=== PATIENT | male | born 1990 | race Caucasian/White ===

== ENCOUNTER 2016-10-29 20:28 | Emergency (ER) | payer OTHER ==
[~2016-10-29] VITALS: Ht 185.4 cm; Wt 104.3 kg
[2016-10-29] MEDS ORDERED: FLUO1OPD (20:36)
[2016-10-29 22:06] VITALS: BP 136/72
--- NOTE | 2016-10-30 02:32 | REP ---
Clinical: Shortness of breath . Comparison: 11/27/2015 . Technique: PA and lateral. Findings: The mediastinum and cardiac silhouette are normal. The lung german are clear and without acute consolidation, effusion, or pneumothorax. The skeletal structures are intact and normal. Impression: 1. No acute cardiopulmonary process. Signed by Fred Ramos MD 10/30/2016 02:24 A
== END 2016-10-29 22:18 | disposition home or self-care (01) ==
LOC: M ED 21:09
DX: J06.9 Acute upper respiratory infection, unspecified (principal); Z88.0 Allergy status to penicillin; Z79.899 Other long term (current) drug therapy

== ENCOUNTER 2017-07-15 17:13 | Emergency (ER) | payer OTHER ==
[2017-07-15] MEDS: PERCOCET 5MG/325MG TAB PO (19:23)
== END 2017-07-15 19:27 | disposition home or self-care (01) ==
LOC: M ED 17:13
DX: S93.402A Sprain of unspecified ligament of left ankle, initial encounter (principal); X50.9XXA Other and unspecified overexertion or strenuous movements or postures, initial encounter; Y92.89 Other specified places as the place of occurrence of the external cause; Y93.23 Activity, snow (alpine) (downhill) skiing, snowboarding, sledding, tobogganing and snow tubing; Z79.899 Other long term (current) drug therapy; Z88.0 Allergy status to penicillin; Z87.891 Personal history of nicotine dependence
CPT/HCPCS: 73610

== ENCOUNTER 2017-08-29 18:50 | Emergency (ER) | payer OTHER ==
[2017-08-29] MEDS: OXYCODONE/APAP 5MG/325MG(BULK FOR ED) 1 TABLET PO (20:11)
== END 2017-08-29 20:20 | disposition home or self-care (01) ==
LOC: M ED 18:50
DX: M66.821 Spontaneous rupture of other tendons, right upper arm (principal); X50.0XXA Overexertion from strenuous movement or load, initial encounter; Y92.89 Other specified places as the place of occurrence of the external cause; Y93.B9 Activity, other involving muscle strengthening exercises; Z88.0 Allergy status to penicillin
CPT/HCPCS: 99283

== ENCOUNTER 2018-09-18 15:56 | Emergency (ER) | payer OTHER ==
[~2018-09-18] VITALS: Ht 185.4 cm; Wt 109.1 kg
[~2018-09-18 15:56] MED LIST: FLUO1OPD; IBUP-1022 PO; PERC5TAB12 PO
[2018-09-18 16:52] LABS: BASO # 0.1 10^3/uL (0.0-0.2); BASO % 0.8 % (0.0-1.0); EOS # 0.3 10^3/uL (0.0-0.50); EOS % 4.2 % (0.0-3.0); HEMATOCRIT 49.9 % (42.0-52.0); HEMOGLOBIN 16.4 g/dl (13.5-17.5); LYMPH # 1.5 10^3/uL (1.5-6.5); LYMPH % 18.7 % (24.0-44.0); MEAN CORPUSCULAR HEMOGLOBIN 28.8 pg (27.0-33.0); MEAN CORPUSCULAR HGB CONC 32.9 g/dl (32.0-36.5); MEAN CORPUSCULAR VOLUME 87.5 fl (80.0-96.0); MONO # 1.1 10^3/uL (0.0-0.8); MONO % 13.5 % (0.0-5.0); NEUTROPHILS # 4.9 10^3/uL (1.8-7.7); NEUTROPHILS % 62.5 % (36.0-66.0); PLATELET COUNT, AUTOMATED 382 10^3/uL (150-450); WHITE BLOOD COUNT 7.9 10^3/uL (4.0-10.0)
--- NOTE | 2018-09-18 17:05 | REP ---
Chest two views HISTORY: Chest pain Comparison: 10/29/2016 The lungs are clear. The heart is normal in size. The pulmonary vasculature is normal in appearance. The bony structure is intact. IMPRESSION: No acute disease. Electronically Signed by Renny Sotelo MD 09/18/2018 04:56 P
[2018-09-18 17:20] LABS: BLOOD UREA NITROGEN 13 MG/DL (7-18); CALCIUM LEVEL 9.3 MG/DL (8.5-10.1); CARBON DIOXIDE LEVEL 29 MEQ/L (21-32); CHLORIDE LEVEL 105 MEQ/L (98-107); CPK CREATINE PHOSPHOKINASE 654 U/L (39-308); GLOMERULAR FILTRATION RATE > 60.0 (>60); GLUCOSE, FASTING 65 MG/DL (70-100); MB/CK RELATIVE INDEX 0.44 (< OR =4); POTASSIUM SERUM 4.4 MEQ/L (3.5-5.1); SODIUM LEVEL 140 MEQ/L (136-145); TROPONIN I < 0.02 NG/ML (< 0.10)
[2018-09-18 19:31] VITALS: BP 108/52
--- NOTE | 2018-09-19 06:27 | ECGEPIP ---
Stationary ECG Study [facility] - ED Test Date: 2018-09-18 Pat Name: OZZY ERVIN Department: Room: - Gender: M Senior Research Project Manager: [email or web address] : 1990 Requested By: Kelly Lund Order Number: [id number] Reading MD: Leo Marin Measurements Intervals [place] Rate: 80 P: 50 OR: 137 QRS: -24 QRSD: 96 T: 42 QT: 354 QTc: 409 Interpretive Statements SINUS RHYTHM WITH MARKED SINUS ARRHYTHMIA POSSIBLE LEFT ATRIAL ENLARGEMENT BORDERLINE LEFT AXIS DEVIATION SIMILAR TO 11/26/15 Electronically Signed On 09-19-2018 6:26:46 EDT by Leo Marin
== END 2018-09-18 19:41 | disposition home or self-care (01) ==
LOC: M ED 15:56
DX: I47.1 Supraventricular tachycardia (principal); Z77.098 Contact with and (suspected) exposure to other hazardous, chiefly nonmedicinal, chemicals; Z88.0 Allergy status to penicillin

== ENCOUNTER 2019-01-10 16:53 | Emergency (ER) | payer OTHER ==
[~2019-01-10] VITALS: Ht 185.4 cm; Wt 102.3 kg
[2019-01-10 16:53] VITALS: BP 127/73
--- NOTE | 2019-01-10 18:10 | REPVR ---
EXAM: US Duplex Left Lower Extremity Veins, Limited EXAM DATE/TIME: 01/10/2019 6:00 PM CLINICAL HISTORY: 28 years old, male; Pain; Leg, lower; Left; Additional info: Swelling TECHNIQUE: Imaging protocol: Real-time Duplex ultrasound of the Left Lower Extremity with 2-D carranza scale, color Doppler flow and spectral waveform analysis. Limited exam focused on the left lower extremity veins. COMPARISON: No relevant prior studies available. FINDINGS: Left deep veins: Unremarkable. The common femoral, femoral, proximal profunda femoral and popliteal veins are patent without thrombus. Normal Doppler waveforms. Normal compressibility and/or augmentation response. Left superficial veins: Unremarkable. Saphenofemoral junction is patent without thrombus. Soft tissues: Unremarkable. IMPRESSION: No acute findings. No evidence of deep vein thrombosis. Electronically signed by: Zak Bianchi On 01/10/2019 18:09:42 PM
[2019-01-10] MEDS ORDERED: NAPR-837 PO (18:36)
== END 2019-01-10 18:44 | disposition home or self-care (01) ==
LOC: M ED 16:53
DX: M65.262 Calcific tendinitis, left lower leg (principal); Z88.0 Allergy status to penicillin
CPT/HCPCS: 93971; 99283; G0463

== ENCOUNTER → 2019-05-01 | Outpatient (CLI) | payer OTHER ==
[~2019-05-01] MED LIST changes: +NAPR-837 PO
--- NOTE | 2019-05-01 10:23 | REP ---
Two-view chest: 05/01/2019. Indication: Atrial fibrillation. Comparison: 09/18/2018. Findings: The lungs are clear. There is no pleural effusion or pneumothorax. Cardiomediastinal silhouette is unremarkable. Impression: Clear lungs. Electronically Signed by Michael Rojas DO 05/01/2019 10:15 A
[2019-05-01 10:31] LABS: APPEARANCE, URINE CLEAR (CLEAR); BACTERIA, URINE AUTO NEGATIVE (NEGATIVE); BILIRUBIN, URINE AUTO NEGATIVE (NEGATIVE); BLOOD, URINE BLOOD NEGATIVE (NEGATIVE); COLOR, URINE YELLOW (YELLOW); GLUCOSE, URINE (UA) AUTO NEGATIVE (NEGATIVE); KETONE, URINE AUTO NEGATIVE (NEGATIVE); LEUKOCYTE ESTERASE, URINE AUTO NEGATIVE (NEGATIVE); MUCUS, URINE SMALL (NEGATIVE); NITRITE, URINE AUTO NEGATIVE (NEGATIVE); PROTEIN, URINE AUTO NEGATIVE (NEGATIVE); RBC, URINE AUTO 2 /HPF (0-3); SPECIFIC GRAVITY URINE AUTO 1.016 (1.002-1.035); SQUAMOUS EPITHELIAL CELL UR AU 0 /HPF (0-6); UROBILINOGEN, URINE AUTO 0.2 mg/dL (0.0-2.0); WBC, URINE AUTO 0 /HPF (0-3)
[2019-05-01 10:33] LABS: HEMATOCRIT 47.6 % (42.0-52.0); HEMOGLOBIN 15.4 g/dl (13.5-17.5); MEAN CORPUSCULAR HEMOGLOBIN 29.6 pg (27.0-33.0); MEAN CORPUSCULAR HGB CONC 32.4 g/dl (32.0-36.5); MEAN CORPUSCULAR VOLUME 91.5 fl (80.0-96.0); PLATELET COUNT, AUTOMATED 237 10^3/uL (150-450); WHITE BLOOD COUNT 3.5 10^3/uL (4.0-10.0)
[2019-05-01 10:44] LABS: INR 1.08; PARTIAL THROMBOPLASTIN TIME 28.1 SECONDS (25.0-38.4); PROTHROMBIN TIME 13.7 SECONDS (11.8-14.0)
[2019-05-01 11:02] LABS: BLOOD UREA NITROGEN 10 MG/DL (7-18); CALCIUM LEVEL 9.1 MG/DL (8.5-10.1); CARBON DIOXIDE LEVEL 29 MEQ/L (21-32); CHLORIDE LEVEL 108 MEQ/L (98-107); CREATININE FOR GFR 0.99 MG/DL (0.70-1.30); GLOMERULAR FILTRATION RATE > 60.0 (>60); GLUCOSE, FASTING 87 MG/DL (70-100); POTASSIUM SERUM 4.7 MEQ/L (3.5-5.1); SODIUM LEVEL 140 MEQ/L (136-145); THYROID STIMULATING HORMONE 0.782 uIU/ML (0.358-3.740)
--- NOTE | 2019-05-04 11:12 | ECHO ---
DATE OF PROCEDURE: 05/01/2019 AGE: 28 LOCATION: Outpatient. REASON FOR THE STUDY: Atrial fibrillation. 2-D MEASUREMENTS: IVS: 1.0 cm LV 5.9 cm IVPW: 0.9 cm LA: 4.1 cm AORTA: 2.9 cm RV: 3.7 cm IVC: 2.2 cm DOPPLER MEASUREMENTS: Mitral E 0.8, mitral A 0.6 with a ratio of 1.4. Maximum tricuspid valve velocity 2.3 meters second. 2-D COMMENTS: 1. The left ventricle is mildly enlarged at 5.9 cm. Normal left ventricular wall thickness and systolic function. The estimated global left ventricular systolic ejection fraction is 60-65%. 2. The left atrium appeared to be mildly enlarged at 4.1 cm. Normal right atrium and right ventricle. 3. The atrial septum appeared to be normal without evidence of defect or shunt. 4. Normal aortic root. 5. No pericardial effusion seen. 6. The aortic valve, mitral valve, tricuspid valve, and pulmonic valve appear to be normal. The proximal pulmonary artery branches were not well visualized. 7. The inferior vena cava was mildly enlarged, central venous pressure might be elevated. Doppler detects mild mitral regurgitation, mild tricuspid regurgitation. The calculated pulmonary artery systolic pressure is between 25-30 mmHg. Assessment of the left ventricular diastolic function appeared to be normal. IMPRESSION 1. Normal global left ventricular systolic and diastolic function. 2. Mild mitral regurgitation with a mildly enlarged left atrium of 4.1 cm. 3. Mild tricuspid regurgitation with borderline elevated pulmonary artery pressure. 4. The inferior vena cava was mildly enlarged, central venous pressure might be elevated.
== END ==
LOC: M CARPUL 09:14
DX: I48.91 Unspecified atrial fibrillation (principal)

== ENCOUNTER 2020-01-02 20:55 | Emergency (ER) | payer OTHER ==
[~2020-01-02] VITALS: Ht 185.4 cm; Wt 106.8 kg
[2020-01-02 21:56] LABS: BASO # 0.1 10^3/uL (0.0-0.2); BASO % 1.3 % (0.0-1.0); EOS # 0.1 10^3/uL (0.0-0.5); EOS % 2.2 % (0.0-3.0); HEMATOCRIT 46.9 % (42.0-52.0); HEMOGLOBIN 15.4 g/dl (13.5-17.5); LYMPH # 1.6 10^3/uL (1.5-5.0); LYMPH % 27.4 % (24.0-44.0); MEAN CORPUSCULAR HEMOGLOBIN 29.7 pg (27.0-33.0); MEAN CORPUSCULAR HGB CONC 32.8 g/dl (32.0-36.5); MEAN CORPUSCULAR VOLUME 90.5 fl (80.0-96.0); MONO % 16.1 % (0.0-5.0); NEUTROPHILS # 3.1 10^3/uL (1.5-8.5); NEUTROPHILS % 52.8 % (36.0-66.0); PLATELET COUNT, AUTOMATED 284 10^3/uL (150-450); RED BLOOD COUNT 5.18 10^6/uL (4.30-6.10)
--- NOTE | 2020-01-02 22:23 | REPVR ---
PROCEDURE INFORMATION: Exam: US Abdomen, Limited; Right Upper Quadrant Exam date and time: 01/02/2020 10:05 PM Age: 29 years old Clinical indication: Abdominal pain; Acute; Additional info: Ruq pain after high fat meal TECHNIQUE: Imaging protocol: US abdomen. Real time ultrasound with image documentation. Limited exam focused on the right upper quadrant. COMPARISON: No relevant prior studies available. FINDINGS: Liver: Normal. No masses. Gallbladder: Normal. No gallstones. There is no gallbladder wall thickening. Common bile duct: Normal. No stones. No dilation. Pancreas: Visualized pancreas is unremarkable. Right kidney: Unremarkable 11.8 cm right kidney. IMPRESSION: Negative. Electronically signed by: Cliff Valenzuela On 01/02/2020 22:22:58 PM
[2020-01-02 22:26] LABS: ALBUMIN 4.3 GM/DL (3.2-5.2); ALT/SGPT 59 U/L (12-78); BILIRUBIN,DIRECT < 0.1 MG/DL (0.0-0.2); BILIRUBIN,TOTAL 0.2 MG/DL (0.2-1.0); BLOOD UREA NITROGEN 10 MG/DL (7-18); CALCIUM LEVEL 9.1 MG/DL (8.5-10.1); CARBON DIOXIDE LEVEL 28 MEQ/L (21-32); CHLORIDE LEVEL 108 MEQ/L (98-107); CREATININE FOR GFR 0.98 MG/DL (0.70-1.30); GLOMERULAR FILTRATION RATE > 60.0 (>60); GLUCOSE, FASTING 88 MG/DL (70-100); LIPASE 101 U/L (73-393); POTASSIUM SERUM 4.2 MEQ/L (3.5-5.1); SODIUM LEVEL 139 MEQ/L (136-145); TOTAL PROTEIN 7.6 GM/DL (6.4-8.2)
[2020-01-02 22:44] VITALS: BP 122/63
== END 2020-01-02 22:44 | disposition home or self-care (01) ==
LOC: M ED 20:55
DX: R10.11 Right upper quadrant pain (principal)

== ENCOUNTER 2020-03-24 21:31 | Emergency (ER) | payer OTHER ==
[~2020-03-24] VITALS: Ht 185.4 cm; Wt 103.2 kg
[2020-03-24 21:32] VITALS: BP 143/91
== END 2020-03-25 00:16 | disposition left against medical advice (07) ==
LOC: M ED 21:31
DX: Z53.21 Procedure and treatment not carried out due to patient leaving prior to being seen by health care provider (principal)

== ENCOUNTER 2021-01-20 16:13 | Emergency (ER) | payer OTHER ==
[~2021-01-20] VITALS: Ht 185.4 cm; Wt 104.5 kg
[2021-01-20 16:14] VITALS: BP 138/75
[2021-01-20] MEDS ORDERED: NAPR-837 PO (20:06)
== END 2021-01-20 20:18 | disposition home or self-care (01) ==
LOC: M ED 16:13
DX: M75.21 Bicipital tendinitis, right shoulder (principal); I48.91 Unspecified atrial fibrillation; Z88.1 Allergy status to other antibiotic agents

== ENCOUNTER 2022-06-05 08:41 | Emergency (ER) | payer OTHER ==
[~2022-06-05] VITALS: Ht 185.4 cm; Wt 104.8 kg
[2022-06-05] MEDS ORDERED: DOXY100T (08:48)
[2022-06-05] MEDS ORDERED: valACYclovir HCL 500 MG TAB PO ONE (12:20)
[2022-06-05] MEDS ORDERED: VALT1TAB PO (12:25)
[2022-06-05 13:01] VITALS: BP 137/79
== END 2022-06-05 13:03 | disposition home or self-care (01) ==
LOC: M ED 08:41
DX: A60.02 Herpesviral infection of other male genital organs (principal); R30.0 Dysuria; Z86.79 Personal history of other diseases of the circulatory system; Z88.1 Allergy status to other antibiotic agents; Z79.2 Long term (current) use of antibiotics; Z79.899 Other long term (current) drug therapy